=== PATIENT | female | born 1990 | race Caucasian/White ===

== ENCOUNTER 2020-11-13 23:42 | Emergency (ER) | payer MEDICAID ==
[~2020-11-13] VITALS: Ht 160 cm; Wt 73.0 kg
[2020-11-14] MEDS ORDERED: IBUPROFEN 600MG TABLET PO ONE (01:00)
[2020-11-14] MEDS ORDERED: NAPR-1176 MT (01:58)
[2020-11-14 02:05] VITALS: BP 116/76
== END 2020-11-14 02:05 | disposition home or self-care (01) ==
LOC: ER 23:42
DX: S09.8XXA Other specified injuries of head, initial encounter (principal); S16.1XXA Strain of muscle, fascia and tendon at neck level, initial encounter; V43.52XA Car driver injured in collision with other type car in traffic accident, initial encounter; Y93.89 Activity, other specified; Y92.488 Other paved roadways as the place of occurrence of the external cause
CPT/HCPCS: 81025; 99282